=== PATIENT | male | born 1975 | race Caucasian/White ===

== ENCOUNTER 2019-12-02 15:29 | Emergency (ER) | payer SELFPAY ==
[~2019-12-02] VITALS: Ht 182.9 cm; Wt 94.8 kg
[2019-12-02 17:40] VITALS: BP 151/93
--- NOTE | 2019-12-02 18:19 | NUR ---
TO ROOM FROM LOBBY. NAD.
[2019-12-02] MEDS ORDERED: AZITHROMYCIN 250 MG TABLET ONE ×2 (18:59→19:03)
[2019-12-02] MEDS ORDERED: FLUORESCEIN OPHTHALMIC 1 MG STRIP ONE (18:59)
[2019-12-02] MEDS ORDERED: PROPARACAINE OPHTH 0.5%, 15ML ONE (18:59)
[2019-12-02] MEDS ORDERED: CEFTRIAXONE 250 MG ONE (18:59)
[2019-12-02] MEDS ORDERED: PLEASE ENTER ALLERGIES MC SCH (19:00)
[2019-12-02] MEDS ORDERED: AZITHROMYCIN 500 MG TABLET PO ONE (19:00)
[2019-12-02] MEDS ORDERED: FLUORESCEIN OPHTHALMIC 1 MG STRIP EACHEYE ONE (19:00)
[2019-12-02] MEDS ORDERED: CEFTRIAXONE 250 MG IM ONE (19:00)
[2019-12-02] MEDS ORDERED: PROPARACAINE OPHTH 0.5%, 15ML EACHEYE ONE (19:00)
--- NOTE | 2019-12-02 19:10 | NUR ---
PT MEDICATED PER MAR, ERP AT BEDSIDE FOR EXAM
--- NOTE | 2019-12-02 19:27 | NUR ---
Patient/Caregiver given discharge instructions and they have confirmed that they understand the instructions. Patient ambulatory with steady gait.
[2019-12-02 20:00] LABS: MICROSCOPIC INDICATED
== END 2019-12-02 19:28 | disposition home or self-care (01) ==
LOC: ED 15:30
DX: N34.1 Nonspecific urethritis (principal); H10.022 Other mucopurulent conjunctivitis, left eye
CPT/HCPCS: 81001; 87086; 87491; 87591; 96372; 99283; J0696